=== PATIENT | male | born 1990 | race Caucasian/White ===

== ENCOUNTER 2023-12-09 23:10 | Emergency (ER) | payer BC ==
[~2023-12-09] VITALS: Ht 182.9 cm; Wt 136.4 kg
[~2023-12-09 23:10] MED LIST: ROXICODONE 55 MG/TAB PO; TYLENOL 325MG325 MG PO; ZOFRAN 4MG T4 MG/TAB PO
[2023-12-09 23:17] VITALS: TEMP 98.3
[2023-12-10] MEDS ORDERED: NS 1,000 ML IV ONE (00:45)
[2023-12-10 00:48] LABS: BASO % 0.4 % (0.0-2.0); EOS # 0.1 K/mm3 (0.0-0.7); EOS % 1.4 % (0.0-4.0); GRAN # 5.8 K/mm3 (1.4-6.5); GRAN % 68.2 % (42.2-75.2); HEMATOCRIT 43.6 % (42.0-52.0); HEMOGLOBIN 14.9 g/dl (13.5-18.0); LYMPH # 1.8 K/mm3 (1.2-3.4); LYMPH % 21.5 % (20.0-51.0); MEAN CELL VOLUME 87 fl (80.0-100.0); MEAN CORPUSCULAR HEMOGLOBIN 30 pg (27-31); MEAN CORPUSCULAR HGB CONC 34 g/dl (33.0-37.0); MEAN PLATELET VOLUME 9.6 fl (7.4-10.4); MONO # 0.7 K/mm3 (0.1-0.6); MONO % 8.3 % (1.7-9.3); PLATELET COUNT 235 K/mm3 (130-400); RED BLOOD COUNT 5.01 M/mm3 (4.20-5.60); REDCELL DISTRIBUTION WIDTH-CV 12.6 % (11.5-14.5)
[2023-12-10 00:54] LABS: COLLECTION METHOD CLEAN CATCH
[2023-12-10] MEDS ORDERED: Iohexol 300 - 100 ML VIAL IV ONE (00:55)
[2023-12-10] MEDS ORDERED: NS 50 ML IV ONE (00:59)
[2023-12-10 01:05] LABS: URINE APPEARANCE CLEAR (CLEAR/HAZY); URINE BLOOD NEGATIVE (NEGATIVE); URINE COLOR YELLOW (YELLOW); URINE GLUCOSE NEGATIVE (NEGATIVE); URINE KETONE NEGATIVE (NEGATIVE); URINE NITRATE NEGATIVE (NEGATIVE); URINE PROTEIN(semi-quant) NEGATIVE (NEGATIVE); URINE UROBILINOGEN 0.2 E.U/dL (0.2-1.0)
[2023-12-10 01:07] LABS: ALBUMIN 3.7 g/dL (3.5-5.0); BILIRUBIN,TOTAL 0.9 mg/dL (0.2-1.2); C-REACTIVE PROTEIN 1.29 mg/dL (0.00-0.50); CALCIUM 9.7 mg/dL (8.4-10.2); CREATININE, serum 0.92 mg/dL (0.72-1.25); POTASSIUM 3.6 mEq/L (3.5-4.5)
[2023-12-10 03:08] VITALS: BP 149/79; PULSE 68
== END 2023-12-10 03:20 | disposition home or self-care (01) ==
LOC: COL.ER 23:10
PROVIDERS: Emergency Medicine
DX: K63.89 Other specified diseases of intestine (principal); R79.82 Elevated C-reactive protein (CRP); Z87.19 Personal history of other diseases of the digestive system
CPT/HCPCS: J7030; Q9967